=== PATIENT | female | born 1960 | race Two or more races ===

== ENCOUNTER 2017-12-06 20:59 | Observation (INO) | payer BC, OTHER ==
[2017-12-06 21:32] LABS: ADD MAN DIFF? NO
[2017-12-06 21:38] LABS: WHITE BLOOD COUNT 10.3 10^3/ul (4.8-10.8)
[2017-12-06 21:38] LABS: BASOPHIL # 0.1 10^3/ul (0.0-0.1); BASOPHILS % 0.6 % (0.0-2.0); EOSINOPHILS # 0.1 10^3/ul (0.0-0.5); EOSINOPHILS % 0.6 % (0.0-7.0); HEMATOCRIT 41.6 % (37.0-47.0); HEMOGLOBIN 13.2 g/dl (12.0-16.0); LYMPHOCYTES # 2.6 10^3/ul (0.8-2.9); LYMPHOCYTES % 25.3 % (15.0-51.0); MEAN CORPUSCULAR HEMOGLOBIN 24.1 pg (29.0-33.0); MEAN CORPUSCULAR HGB CONC 31.7 g/dl (32.0-37.0); MEAN CORPUSCULAR VOLUME 76.1 fl (82.0-101.0); MEAN PLATELET VOLUME 10.6 fl (7.4-10.4); MONOCYTE # 0.7 10^3/ul (0.3-0.9); NEUTROPHIL # 6.8 10^3/ul (1.6-7.5); PLATELET COUNT 298 10^3/UL (140-415); RED BLOOD COUNT 5.47 10^6/ul (4.20-5.40); RED CELL DISTRIBUTION WIDTH 13.2 % (11.5-14.5)
[2017-12-06 21:50] LABS: INR 0.91; PROTIME 12.3 Sec (11.9-14.9)
[2017-12-06 21:51] LABS: PARTIAL THROMBOPLASTIN TIME 29.2 Sec (25.0-35.0)
[2017-12-06 21:54] LABS: ALANINE AMINOTRANSFERASE 30 IU/L (13-69); ALBUMIN 5.1 g/dl (3.3-4.9); ALBUMIN/GLOBULIN RATIO 1.45; ALKALINE PHOSPHATASE 101 IU/L (42-121); ANION GAP 19 (8-16); ASPARTATE AMINO TRANSFERASE 21 IU/L (15-46); BILIRUBIN,INDIRECT 0.1 mg/dl (0-1.1); BILIRUBIN,TOTAL 0.1 mg/dl (0.2-1.3); BLOOD UREA NITROGEN 15 mg/dl (7-20); CALCIUM 10.6 mg/dl (8.4-10.2); CARBON DIOXIDE 32 mmol/L (21-31); CHLORIDE 98 mmol/L (97-110); CREATININE 0.75 mg/dl (0.44-1.00); GLUCOSE 109 mg/dl (70-220); POTASSIUM 3.6 mmol/L (3.5-5.1); SODIUM 145 mmol/L (135-144); TOTAL PROTEIN 8.6 g/dl (6.1-8.1)
[2017-12-06] MEDS: ASPIRIN 325 MG TAB PO (21:56)
[2017-12-06] MEDS: ONDANSETRON 4 MG INJ IV (21:57)
[2017-12-06] MEDS: morphine 4 MG/ML VIAL IV ×2 (21:57→22:17)
[2017-12-06] MEDS: NITROGLYCERIN 2% 1 GM OINT PKT TD (21:57)
[2017-12-06 22:07] LABS: TROPONIN-I < 0.012 ng/ml (0.00-0.12)
[2017-12-06] MEDS: morphine 2 MG INJ IV (22:23)
[2017-12-06] MEDS ORDERED: ACETAMINOPHEN 325 MG TAB PO (23:00)
[2017-12-06] MEDS ORDERED: ONDANSETRON 4 MG INJ IV (23:00)
[2017-12-06] MEDS ORDERED: HYDROmorphONE 1 MG/ML SYG IV (23:18)
[2017-12-06] MEDS ORDERED: HYDROmorphONE 0.5 MG/0.5 ML SYG IV (23:29)
[2017-12-06] MEDS ORDERED: NACL 0.9% 3 ML SYG IV (23:30)
[2017-12-06] MEDS ORDERED: BISACODYL (EC) 5 MG TAB PO (23:30)
[2017-12-06] MEDS ORDERED: ENALAPRILAT 1.25 MG INJ IV (23:30)
[2017-12-06] MEDS: METOCLOPRAMIDE 10 MG INJ IV (23:33)
[2017-12-06] MEDS: DIPHENHYDRAMINE 50 MG INJ IV (23:33)
[2017-12-06] MEDS: HYDROmorphONE 0.5 MG/0.5 ML SYG IV (23:34)
[2017-12-07] MEDS: SOD CHLORIDE 0.9% 1,000 ML IV (00:46)
[2017-12-07] MEDS: ONDANSETRON 4 MG INJ IV (03:09)
[2017-12-07] MEDS: morphine 2 MG INJ IV (05:14)
[2017-12-07 06:38] LABS: ADD MAN DIFF? NO
[2017-12-07] MEDS: KETOROLAC 30 MG INJ IV ×3 (06:44→17:42)
[2017-12-07 06:48] LABS: BASOPHIL # 0.1 10^3/ul (0.0-0.1); BASOPHILS % 0.8 % (0.0-2.0); EOSINOPHILS % 0.6 % (0.0-7.0); HEMATOCRIT 35.2 % (37.0-47.0); HEMOGLOBIN 11.2 g/dl (12.0-16.0); LYMPHOCYTES # 1.6 10^3/ul (0.8-2.9); MEAN CORPUSCULAR HEMOGLOBIN 24.2 pg (29.0-33.0); MEAN CORPUSCULAR HGB CONC 31.8 g/dl (32.0-37.0); MEAN PLATELET VOLUME 10.7 fl (7.4-10.4); MONOCYTE # 0.5 10^3/ul (0.3-0.9); MONOCYTES % 7.2 % (0.0-11.0); NEUTROPHIL # 4.5 10^3/ul (1.6-7.5); NEUTROPHILS % 67.1 % (39.0-77.0); PLATELET COUNT 229 10^3/UL (140-415); RED BLOOD COUNT 4.63 10^6/ul (4.20-5.40); RED CELL DISTRIBUTION WIDTH 13.4 % (11.5-14.5)
[2017-12-07 06:48] LABS: WHITE BLOOD COUNT 6.7 10^3/ul (4.8-10.8)
[2017-12-07 07:06] LABS: ALANINE AMINOTRANSFERASE 31 IU/L (13-69); ALBUMIN 4.2 g/dl (3.3-4.9); ALKALINE PHOSPHATASE 69 IU/L (42-121); ANION GAP 15 (8-16); ASPARTATE AMINO TRANSFERASE 17 IU/L (15-46); BILIRUBIN,INDIRECT 0.3 mg/dl (0-1.1); BILIRUBIN,TOTAL 0.3 mg/dl (0.2-1.3); BLOOD UREA NITROGEN 16 mg/dl (7-20); CALCIUM 9.2 mg/dl (8.4-10.2); CARBON DIOXIDE 30 mmol/L (21-31); CHLORIDE 102 mmol/L (97-110); CHOLESTEROL 156 mg/dl (100-200); CREATINE KINASE 47 IU/L (23-200); CREATININE 0.67 mg/dl (0.44-1.00); GLUCOSE 105 mg/dl (70-220); HDL CHOLESTEROL 26 mg/dl (37-92); LDL CHOLESTEROL,CALCULATED 83 mg/dl; POTASSIUM 3.8 mmol/L (3.5-5.1); SODIUM 143 mmol/L (135-144); TRIGLYCERIDES 235 mg/dl (0-149)
[2017-12-07 07:11] LABS: IRON 87 ug/dl (35-150)
[2017-12-07 07:14] LABS: CK INDEX 0.9; CK-MB 0.43 ng/ml (0.0-2.4); TROPONIN-I 0.013 ng/ml (0.00-0.12)
[2017-12-07 07:20] LABS: % IRON SATURATION 31 % SAT (22-52); TOTAL IRON BINDING CAPACITY 283 ug/dl (241-421)
[2017-12-07 07:36] LABS: FERRITIN 74.9 ng/ml (11.1-264.0)
[2017-12-07] MEDS: ASPIRIN 81 MG TAB PO (09:27)
[2017-12-07 11:34] LABS: CREATINE KINASE 46 IU/L (23-200)
[2017-12-07 11:45] LABS: CK INDEX 0.7; CK-MB 0.32 ng/ml (0.0-2.4)
[2017-12-07 11:46] LABS: TROPONIN-I < 0.012 ng/ml (0.00-0.12)
[2017-12-07] MEDS: METOPROLOL 25 MG TAB PO ×2 (14:39→22:52)
[2017-12-07] MEDS: DOCUSATE SODIUM 100 MG CAP PO (21:08)
[2017-12-07] MEDS: NITROGLYCERIN (SL) 0.4 MG TAB SL (21:55)
[2017-12-07] MEDS: ACETAMINOPHEN 325 MG TAB PO (22:01)
[2017-12-07] MEDS: LORAZEPAM 2 MG INJ IV (22:51)
[2017-12-08 07:41] LABS: TROPONIN-I < 0.012 ng/ml (0.00-0.12)
[2017-12-08] MEDS: METOPROLOL 25 MG TAB PO (08:14)
[2017-12-08] MEDS: ASPIRIN 81 MG TAB PO (08:14)
[2017-12-08] MEDS: REGADENOSON 0.4 MG/5 ML SYG (13:54)
== END 2017-12-08 20:50 | disposition home or self-care (01) ==
LOC: E/R 12-07 00:13 → TEL 12-07 23:50 → E/R 20:59 → MS3 22:46
DX: R07.89 Other chest pain (principal); R51 Headache; G89.29 Other chronic pain; E66.9 Obesity, unspecified; Z68.41 Body mass index [BMI] 40.0-44.9, adult; I10 Essential (primary) hypertension; D50.9 Iron deficiency anemia, unspecified; R00.0 Tachycardia, unspecified; R94.31 Abnormal electrocardiogram [ECG] [EKG]; F41.9 Anxiety disorder, unspecified
CPT/HCPCS: 36415; 70450; 70553; 71045; 72156; 78452; 80053; 80061; 82550; 82553; 82728; 83036; 83540; 84443; 84484; 85025; 85610; 85730; 93005; 93017; 93306; 96374; 96375; 99285-25